=== PATIENT | female | born 1960 | race Caucasian/White ===

== ENCOUNTER 2017-09-11 12:33 | Emergency (ER) | payer MEDICARE ==
[2017-09-11] MEDS ORDERED: HYDROmorphone INJ* 2 MG/ML CARPUJECT SYRINGE IV SLOW PU ONE ×2 (14:47→17:32)
[2017-09-11] MEDS ORDERED: Carisoprodol TAB* 350 MG PO ONE (15:53)
--- NOTE | 2017-09-11 16:06 | RAD ---
INDICATION: Back pain. Multiple prior surgeries COMPARISON: Lumbar spine March 21, 2009 TECHNIQUE: Noncontrast axial source images was performed from the thoracolumbar junction to the sacrum. Coronal and and sagittal reformatted images were generated. FINDINGS: Vertebrae: There is no fracture or acute focal bony lesion. There is posterior lumbar fusion at L2-L5 with decompression at L3-L4 and L4-L5. There is a fusion cage device at L2-L3. There is no evidence of hardware failure. Alignment: The lumbar vertebrae are normally aligned. Central Canal: There are no significant CT abnormalities of the central canal or foramina. There are some limitations due to beam hardening artifact from the postsurgical change MR imaging is a more sensitive method to evaluate the canal and foramina. Intervertebral disc spaces: The remaining disc spaces are maintained. Soft tissues: The paravertebral soft tissues are normal. Other: None IMPRESSION: MULTILEVEL LUMBAR FUSION WITH DECOMPRESSIVE SURGERY. NO EVIDENCE OF HARDWARE FAILURE OR OSTEOLYSIS. NO SIGNIFICANT IDENTIFIABLE CANAL OR FORAMINAL COMPROMISE SIGNIFICANCE
--- NOTE | 2017-09-11 16:14 | RAD ---
INDICATION: Popping sensation RIGHT anterior chest. COMPARISON: October 25, 2002 TECHNIQUE: Dual energy PA and routine lateral views of the chest were obtained. REPORT: Mild elevation of the RIGHT hemidiaphragm which accounting for difference in degree of inspiration compared with the prior exam is without significant interval change. Minimal prominence of interstitial markings. No alveolar consolidation, focal pulmonary lesion, pleural effusion, pneumothorax. The heart, pulmonary vasculature, and mediastinal contours are unremarkable. Gallbladder fossa surgical clips. No rib fracture evident. IMPRESSION: Stigmata of potential obstructive lung disease. No acute cardiopulmonary process evident.
[2017-09-11] MEDS ORDERED: Diazepam TAB(*) 5 MG PO ONE (17:33)
[2017-09-11] MEDS ORDERED: fentaNYL PATCHs 100 MCG/HR TRANSDERM SCH (18:00)
[2017-09-11 19:13] VITALS: BP 130/65
--- NOTE | 2017-09-12 04:14 | ED ---
Bebeto Parnell Jason, scribed for Christine Sands MD on 09/11/17 at 1441 . Back Pain - HPI Summary HPI Summary: This patient is a 56 year old F presenting to [facility] accompanied by her son with a chief complaint of back pain for 4 days. The patient states I keep feeling a popping feeling under my right breast today and I have really bad back pain. She reports that her back pain began 4 days ago and she had MRI for pituitary gland concerns 3 days ago. The patient includes that she has had multiple surgeries in [place]. Her Last surgery was in 2009 and she takes Gabapentin 1800 mg a day. The patient rates the pain 10/10 in severity. Symptoms aggravated by movement. Symptoms alleviated by nothing. The patient's PCP is Dr. Zhong.(new PCP for pt). Pt states she is under a lot of stress because her is admitted in [facility] with stage IV colon CA. - History of Current Complaint Chief Complaint: EDBackInjuryPain Stated Complaint: BACK PAIN Time Seen by Provider: 09/11/17 14:28 Hx Obtained From: Patient Onset/Duration: Gradual Onset, Lasting Days - Since 4 days ago, Still Present Onset/Duration: Started Days Ago, Atraumatic, Still Present Timing: Constant Back Pain Location: Is Discrete @ - lumbar Severity Initially: Moderate Severity Currently: Severe Pain Intensity: 10 Pain Scale Used: 0-10 Numeric Character: Sharp Aggravating Symptom(s): Movement Alleviating Symptom(s): Nothing Associated Signs And Symptoms: Positive: Negative Related History: Previous Back Injury - Allergies/Home Medications Allergies/Adverse Reactions: Allergies Allergy/AdvReac Type Severity Reaction Status Date / Time bee venom protein (honey bee) Allergy Anaphylatic Verified 09/11/17 12:54 Shock Home Medications: Home Medications Diazepam TAB(*) [Valium TAB(*)] 5 mg PO TID PRN 09/11/17 [History Confirmed ] Gabapentin CAP(*) [Neurontin 300 CAP(*)] 600 mg PO TID 09/11/17 [History Confirmed 09/11/17] Hydrochlorothiazide TAB* [Hydrodiuril TAB*] 25 mg PO DAILY 09/11/17 [History Confirmed 09/11/17] Hydrocodone/Acetamin 10/325(NF [[place] 10/325 (NF)] 1 tab PO Q4H PRN 09/11/17 [ History Confirmed 09/11/17] Metformin ER (NF) 500 mg PO DAILY 09/11/17 [History Confirmed 09/11/17] Metoprolol Succinate XL TAB* [Toprol XL TAB*] 100 mg PO DAILY 09/11/17 [History Confirmed 09/11/17] Rosuvastatin (NF) [Crestor (NF)] 10 mg PO BEDTIME 09/11/17 [History Confirmed ] Valsartan TAB* [Diovan TAB*] 320 mg PO DAILY 09/11/17 [History Confirmed ] diPHENhydraMINE PO* [Benadryl PO 25 MG TAB*] 25 - 50 mg PO BEDTIME PRN 09/11/17 [History Confirmed 09/11/17] PMH/Surg Hx/FS Hx/Imm Hx Previously Healthy: No Endocrine/Hematology History: Reports: Hx Diabetes, Other Endocrine/ Hematological Disorders - pituitary adenoma Cardiovascular History: Reports: Hx Hypercholesterolemia, Hx Hypertension Musculoskeletal History: Reports: Hx Back Problems - Degenerative Disk Disease and multiple surgeries.(pt has pictures of prior) EENT History: Denies: Hx Deafness - Surgical History Surgery Procedure, Year, and Place: multiple back surgeries in [place], last in 2009. Infectious Disease History: No Infectious Disease History: Denies: Traveled Outside the US in Last 30 Days - Family History Known Family History: Positive: Cardiac Disease, Other - Cancer - Social History Occupation: Disabled Lives: With Family Alcohol Use: None Substance Use Type: Reports: None Smoking Status (MU): Former Smoker Review of Systems Positive: Other - "popping feeling under the breast" Cardiovascular: Negative Respiratory: Negative Gastrointestinal: Negative Positive: Arthralgia, Other - low back pain Skin: Negative Neurological: Negative Psychological: Normal All Other Systems Reviewed And Are Negative: Yes Physical Exam - Summary Physical Exam Summary: General: Patient is hunched over stretcher in tears. Complaining of severe pain on arrival to the room. Appearance: Ill-appearing, severe pain distress, Well-nourished. Skin: Warm, color reflects adequate perfusion Head: Normal Head/Face inspection Eyes: Conjunctiva clear ENT: Normal inspection Neck: Supple, no nodes, no JVD. Respiratory: Lungs clear, Normal breath sounds, no respiratory distress Cardio: RRR, No murmur, pulses normal, brisk capillary refill Abdomen: soft, nontender, no masses, no guarding, no rebound Bowel sounds: present Musculoskeletal: Strength Intact/ ROM intact. No calf tenderness. No edema. Spinal and paraspinal tenderness of the lumbar spine. Psychological: Normal Neuro Exam: A&O x3 CN II-XII intact Motor function 5/5 Sensation intact Knee reflexes and ankle reflexes 2+ bilaterally. Able to walk on heels and tip toes. Triage Information Reviewed: Yes Vital Signs On Initial Exam: Initial Vitals Temp Pulse Resp BP Pulse Ox 97.3 F 77 24 170/97 100 09/11/17 12:54 09/11/17 12:54 09/11/17 12:54 09/11/17 12:54 09/11/17 12:54 Vital Signs Reviewed: Yes Diagnostics - Vital Signs Vital Signs Temp Pulse Resp BP Pulse Ox 09/11/17 12:54 97.3 F 77 24 170/97 100 - Laboratory Lab Statement: Any lab studies that have been ordered have been reviewed, and results considered in the medical decision making process. - Radiology CXR Radiology Interpretation Completed By: Radiologist - CXR reveals, per radiologist, Stigmata of potential obstructive lung disease. No acute cardiopulmonary process evident. ED physician has reviewed this radiology report. - CT Lumbar Spine CT Interpretation Completed By: Radiologist - Lumbar Spine CT reveals, per radiologist, MULTILEVEL LUMBAR FUSION WITH DECOMPRESSIVE SURGERY. NO EVIDENCE OF HARDWARE FAILURE OR OSTEOLYSIS. NO SIGNIFICANT IDENTIFIABLE CANAL OR FORAMINAL COMPROMISE SIGNIFICANCE. ED physician has reviewed this radiology report. Re-Evaluation - Re-Evaluation First Eval Re-Evaluation Time: 17:28 Change: Unchanged Comment: Patient states she experiences lower back pain when she takes a deep breath. Back Pain Course/Dx - Course Course Of Treatment: In the ED course the patient was Dilaudid 2mg IV first. At 15:50 Dr. Sands consulted the Patients nurse, who reported that the patients pain is down to a 7/10. Pt given Soma with minimal relief. Pt then given additional dilaudid 2mg IV, then valium 5mg po and started on Fentanyl 100mcg patch with relief of most of her pain. CT LS spine shows no hardward failure or fx, and shows no acute cause for surgical intervention or further emergency treatment. Pt is relieved and states she wants to go upstairs in [facility] and sleep with her who is on palliative care. - Diagnoses Differential Diagnosis/HQI/PQRI: Positive: Arthritis, Compressive Cord Syndrome , Herniated Disc, Strain, Sprain Provider Diagnoses: Acute back pain, Chronic back pain, Degenerative disc disease, multiple back surgeries Discharge - Discharge Plan Condition: Stable Disposition: HOME Prescriptions: fentaNYL PATCHs 100 MCG/HR* [Duragesic Patch 100 Mcg/Hr *] 100 mcg TRANSDERM Q72H #5 patch MDD 07/01 Patient Education Materials: Acute Low Back Pain (ED), Chronic Back Pain (ED) Referrals: David Zhong MD [Medical Doctor] - 2 Days Additional Instructions: We have given you a copy of your CT lumbar spine and chest xray. We did not find a cause for the pain that needs any emergency treatment. We gave you two doses of dilaudid 2mg IV, one 350mg oral dose of Soma, a muscle relaxant, and one dose of valium 5mg orally, and we started you on a Fentanyl patch 100mcgs/ hr that should stay in place for 3 days and then replace it. Follow up with your doctor RADHAMES. RETURN TO THE EMERGENCY DEPARTMENT FOR CHANGING OR WORSENING SYMPTOMS. The documentation as recorded by the Bebeto blackburn Jason accurately reflects the service I personally performed and the decisions made by , Christine Sands MD.
== END 2017-09-11 18:15 | disposition home or self-care (01) ==
LOC: ED 12:33
DX: M54.9 Dorsalgia, unspecified (principal); M51.34 Other intervertebral disc degeneration, thoracic region; Z87.891 Personal history of nicotine dependence
CPT/HCPCS: 71046; 72131; 99283; A9270-GY; J1170

== ENCOUNTER 2017-12-21 13:53 | Emergency (ER) | payer MEDICARE ==
--- NOTE | 2017-12-21 15:31 | RAD ---
INDICATION: Imbalance after " struck head on top of car while getting into car " and "patient also fell in closet last night struck head against TV". Patient denies loss of consciousness. COMPARISON: CT brain September 05, 2003 TECHNIQUE: Contiguous axial sections of the brain were obtained from the skull base to the vertex without contrast. FINDINGS: The ventricles, cisterns and sulci are within normal limits. The castillo-white matter differentiation is adequately maintained and there is no sulcal effacement. No significant focal abnormality or mass effect is present. There is no evidence for intracranial hemorrhage. No significant focal osseous abnormality is present. The visualized portion of the paranasal sinuses appear clear. The mastoid air cells are well aerated bilaterally. IMPRESSION: Normal CT of the brain.
[2017-12-21 16:32] VITALS: BP 115/58
--- NOTE | 2017-12-21 19:40 | ED ---
Mat Parnell Jade, scribed for Jessica Shaw MD on 12/21/17 at 1450 . Head Injury - HPI Summary HPI Summary: Pt is a 57 y/o female who presents to the ED S/P head injury. She states she hit the left side of her head yesterday while getting into a car. Last night, she hit her head on the right side after falling in her closet, and injured her left arm as well. This morning she woke up feeling dizzy and unable to walk straight, nauseated, and had double vision. Pt complains of head pain towards the back (occipital), rated 5/10 in severity. She denies any vomiting or LOC. Pt initially thought her symptoms were due to sleep deprivation, but sleeping did not resolve anything. She has a Fentanyl patch on for her chronic back pain. PMHx HTN, broken back, neuropathy, low ATCH levels, and low cortisol levels. She did not take any medications for her symptoms. Pt was recently started on Prozac, and is worried about her recently low BP. - History Of Current Complaint Chief Complaint: EDHeadInjury Stated Complaint: POSSIBLE CONCUSSION Time Seen by Provider: 12/21/17 14:11 Hx Obtained From: Patient Mechanism Of Injury: Blunt Trauma, Fall From A Standing Position Onset/Duration: Started Days Ago - 1, Still Present Severity Currently: Moderate Pain Intensity: 5 Pain Scale Used: 0-10 Numeric Location of Head Injury: Frontal Associated Signs And Symptoms: Nausea, Headache, Visual Changes - double vision - Allergies/Home Medications Allergies/Adverse Reactions: Allergies Allergy/AdvReac Type Severity Reaction Status Date / Time bee venom protein (honey bee) Allergy Anaphylatic Verified 12/21/17 14:08 Shock Home Medications: Home Medications FLUoxetine CAP* [PROzac CAP*] 20 mg PO DAILY 12/21/17 [History Confirmed ] PMH/Surg Hx/FS Hx/Imm Hx Endocrine/Hematology History: Reports: Hx Diabetes, Other Endocrine/ Hematological Disorders - pituitary adenoma Cardiovascular History: Reports: Hx Hypercholesterolemia, Hx Hypertension Musculoskeletal History: Reports: Hx Back Problems - Degenerative Disk Disease and multiple surgeries.(pt has pictures of prior) Sensory History: Denies: Hx Deafness Psychiatric History: Reports: Hx Depression - Situational - Surgical History Surgery Procedure, Year, and Place: multiple back surgeries in [place], last in 2009. Infectious Disease History: No Infectious Disease History: Denies: Traveled Outside the US in Last 30 Days - Family History Known Family History: Positive: Cardiac Disease, Other - Cancer - Social History Alcohol Use: Rare Substance Use Type: Reports: None Smoking Status (MU): Former Smoker Review of Systems Positive: Diplopia Positive: Nausea. Negative: Vomiting Neurological: Other - Dizziness, unable to walk straight Positive: Headache - Occipital Positive: Depressed - due to 's CA All Other Systems Reviewed And Are Negative: Yes Physical Exam - Summary Physical Exam Summary: GENERAL: Patient is a well-developed and nourished F who is lying comfortable in the stretcher. Patient is not in any acute respiratory distress. HEAD AND FACE: Normocephalic. EYES: PERRLA, EOMI x 2. EARS: Hearing grossly intact. MOUTH: Oropharynx within normal limits. NECK: Supple, trachea is midline, no adenopathy, no JVD, no carotid bruit. CHEST: Symmetric, no tenderness at palpation LUNGS: Clear to auscultation bilaterally. No wheezing or crackles. CVS: Regular rate and rhythm, S1 and S2 present, no murmurs or gallops appreciated. ABDOMEN: Soft, non-tender. Bowel sounds are normal. No abdominal abnormal pulsations. EXTREMITIES: Full ROM in all major joints, no edema, no cyanosis or clubbing. NEURO: Alert and oriented x 3. No acute neurological deficits. Speech is normal and follows commands. Cranial nerves II-XII grossly intact, no dysmetria finger to nose, nml heel to [place] SKIN: Dry and warm. Triage Information Reviewed: Yes Vital Signs On Initial Exam: Initial Vitals Temp Pulse Resp BP Pulse Ox 97.8 F 71 16 98/58 96 12/21/17 14:03 12/21/17 14:03 12/21/17 14:03 12/21/17 14:03 12/21/17 14:03 Vital Signs Reviewed: Yes Diagnostics - Vital Signs Vital Signs Temp Pulse Resp BP Pulse Ox 12/21/17 14:28 73 8 108/64 96 12/21/17 14:27 75 94 12/21/17 14:03 97.8 F 71 16 98/58 96 - Laboratory Lab Statement: Any lab studies that have been ordered have been reviewed, and results considered in the medical decision making process. - CT Brain CT CT Interpretation: No Acute Changes - 14:52: Normal CT of the brain. ED physician reviewed radiology report. CT Interpretation Completed By: Radiologist Head Injury Course/Dx Course Of Treatment: Pt is a 57 y/o female who presents to the ED S/P head injury. She states she hit the left side of her head yesterday while getting into a car. Last night, she hit her head on the right side after falling in her closet, and injured her left arm as well. This morning she woke up feeling dizzy and unable to walk straight, nauseated, and had double vision. Pt complains of head pain towards the back (occipital), rated 5/10 in severity. She denies any vomiting or LOC. Pt initially thought her symptoms were due to sleep deprivation, but sleeping did not resolve anything. She has a Fentanyl patch on for her chronic back pain. PMHx HTN, broken back, neuropathy, low ATCH levels, and low cortisol levels. She did not take any medications for her symptoms. Pt was recently started on Prozac, and is worried about her recently low BP. A physical exam was normal. A brain CT was normal. Final dx is head injury. Pt will be discharged and was given strict precautions, especially for concussion. Pt is agreeable with this plan. - Diagnoses Provider Diagnoses: Head injury Discharge - Sign-Out/Discharge Documenting (check all that apply): Discharge/Admit/Transfer - Discharge - Discharge Plan Condition: Stable Disposition: HOME Patient Education Materials: Concussion (ED), Head Injury (ED) Referrals: Dickson Del Rio MD [Primary Care Provider] - 3 Days Additional Instructions: RETURN TO THE ED WITH ANY NEW OR WORSENING SYMPTOMS. The documentation as recorded by the Mat blackburn Jade accurately reflects the service I personally performed and the decisions made by , Jessica Shaw MD.
== END 2017-12-21 16:31 | disposition home or self-care (01) ==
LOC: ED 13:53
DX: S09.90XA Unspecified injury of head, initial encounter (principal); W22.8XXA Striking against or struck by other objects, initial encounter; Y92.9 Unspecified place or not applicable; I10 Essential (primary) hypertension; G62.9 Polyneuropathy, unspecified; Z87.891 Personal history of nicotine dependence
CPT/HCPCS: 70450; 99282

== ENCOUNTER 2018-01-27 14:38 | Emergency (ER) | payer MEDICARE ==
[2018-01-27] MEDS ORDERED: NS 0.9% 1000 ML* 1,000 ML IV ONE (15:13)
[2018-01-27] MEDS ORDERED: diPHENhydraMINE IV* 50 MG in NS 0.9% 50 ML* 50 ML IVPB ONE (15:13)
[2018-01-27] MEDS ORDERED: Metoclopramide IV* 5 MG/ML 2 ML VIAL IV ONE (15:13)
[2018-01-27] MEDS ORDERED: Ketorolac INJ* 30 MG/ML 1 ML VIAL IV PUSH ONE (15:13)
--- NOTE | 2018-01-27 15:20 | ED ---
Headache - HPI Summary HPI Summary: This is Located Within [facility] documenting for attending Jessica Shaw MD. Pt is a 57 y/o F c/o SANTIAGO onset this AM. Pain is located diffusely across her head worse in the frontal region. She says that it feels like brain is coming out of her head. Her was diagnosed with colon cancer and given a few months to live and is currently on hospice. He has received all possible treatments and is currently dying while she is here in ED. Assoc Sx: SANTIAGO, bp 200/ 110, stress, N. Denies: SI, V/D. She has not eaten anything today and notes that she "would not do that to her kids", when asked if she is having SI. Pt took 2 doses of diovan, separately, FINISHED [employer]IG[employer]ER in attempts to lower her BP. Has not been keeping up with meds due to everything going on in her life. Her BP jumps up and down so it is hard to keep on top of meds. She measured her BP at 90/50 the other day. She otherwise denies any fevers, chills, neck stiffness, photophobia - History Of Current Complaint Chief Complaint: EDHeadache Stated Complaint: HEADACHE/HIGH BP Time Seen by Provider: 01/27/18 15:04 Hx Obtained From: Patient Onset/Duration: Sudden Onset, Started hours ago - this AM, Still Present Initially Headache Was: "Worst Headache Ever" - "feels like brain is coming out of head" Currently Pain Is: Current Pain Scale(0-10)= Timing: Constant Location of Headache: Diffuse Allevating Factors: Medication - diovan Associated Signs And Symptoms: Nausea, Other (Noted In Comments) - NEG: vomiting POS: Diarrhea - Allergies/Home Medications Allergies/Adverse Reactions: Allergies Allergy/AdvReac Type Severity Reaction Status Date / Time bee venom protein (honey bee) Allergy Anaphylatic Verified 12/21/17 14:08 Shock PMH/Surg Hx/FS Hx/Imm Hx Endocrine/Hematology History: Reports: Hx Diabetes, Other Endocrine/ Hematological Disorders - pituitary adenoma Cardiovascular History: Reports: Hx Hypercholesterolemia, Hx Hypertension Musculoskeletal History: Reports: Hx Back Problems - Degenerative Disk Disease and multiple surgeries.(pt has pictures of prior) Sensory History: Denies: Hx Deafness Psychiatric History: Reports: Hx Depression - Situational - Surgical History Surgery Procedure, Year, and Place: multiple back surgeries in [place], last in 2009. Infectious Disease History: No Infectious Disease History: Denies: Traveled Outside the US in Last 30 Days - Family History Known Family History: Positive: Cardiac Disease, Other - Cancer - Social History Occupation: Disabled Lives: With Family Alcohol Use: Rare Substance Use Type: Reports: None Smoking Status (MU): Former Smoker Review of Systems Positive: Other - unusual HTN Positive: Nausea. Negative: Vomiting, Diarrhea Positive: Headache Positive: Other - stressed All Other Systems Reviewed And Are Negative: Yes Physical Exam - Summary Physical Exam Summary: GENERAL: Patient is a well developed and nourished F who is lying comfortable in the stretcher. Patient is not in any acute respiratory distress. Very emotional, crying, not suicidal. HEAD AND FACE: Normocephalic EYES: PERRLA, EOMI x 2. EARS: Hearing grossly intact. MOUTH: Oropharynx within normal limits. NECK: Supple, trachea is midline, no adenopathy, no JVD, no carotid bruit. CHEST: Symmetric, no tenderness at palpation LUNGS: Clear to auscultation bilaterally. No wheezing or crackles. CVS: Regular rate and rhythm, S1 and S2 present, no murmurs or gallops appreciated. ABDOMEN: Soft, non-tender. Bowel sounds are normal. No abdominal abnormal pulsations. EXTREMITIES: Full ROM in all major joints, no edema, no cyanosis or clubbing. NEURO: Alert and oriented x 3. No acute neurological deficits. Speech is normal and follows commands. Cranial nerves II through XII grossly intact, no dysmetria on [id number] testing SKIN: Dry and warm Psych: Sad affect, no SI or H, no other direct visualization, linear thought process and content Triage Information Reviewed: Yes Vital Signs On Initial Exam: Initial Vitals Temp Pulse Resp BP Pulse Ox 98.1 F 60 20 153/101 99 01/27/18 14:40 01/27/18 14:40 01/27/18 14:40 01/27/18 14:40 01/27/18 14:40 Vital Signs Reviewed: Yes Diagnostics - Vital Signs Vital Signs Temp Pulse Resp BP Pulse Ox 01/27/18 14:40 98.1 F 60 20 153/101 99 - Laboratory Lab Statement: Any lab studies that have been ordered have been reviewed, and results considered in the medical decision making process. Re-Evaluation - Re-Evaluation First Eval Re-Evaluation Time: 16:45 Change: Improved Comment: She is feeling much better. She notes the pain of her SANTIAGO was reduced "from a 40/10 to a 7/10". She is now able to eat and is eating cheese/crackers. Second Eval Re-Evaluation Time: 19:00 Change: Worse Comment: Pt is still crying and breaks down every time the provider mentions going home. Provider ordered diphenhydramine and dexamethosone for the patient. Headache Course/Dx - Course Course Of Treatment: Pt is a 57 y/o F c/o SANTIAGO onset this AM. Patient reports that she is under a lot of stress at the moment because her of 39 years is on hospice and she is having a hard time dealing with it. Patient additionally reports that she is at odds with her children which is making the situation worse. Patient very tearful but denies any SI or HI. Patient was given IV fluids, Toradol, Reglan, Benadryl and upon reevaluation, patient reports that her headache went from a "40" to a 7/10. She was additionally given Fioricet and Decadron and reports further improvement. Patient is otherwise hemodynamically stable and will be discharged home if strict return precautions and otherwise follow-up with her doctor. I suspect patient's headache is most likely stress-induced and she says she'll follow-up with her reptile keeper. - Diagnoses Provider Diagnoses: Headache Discharge - Sign-Out/Discharge Documenting (check all that apply): Patient Departure - Discharge Plan Condition: Stable Disposition: HOME Referrals: Dickson Del Rio MD [Primary Care Provider] - 3 Days Additional Instructions: Follow up with your primary care physician in 1-3 days. RETURN TO THE EMERGENCY DEPARTMENT FOR CHANGING OR WORSENING SYMPTOMS. - Billing Disposition and Condition Condition: STABLE Disposition: Home
[2018-01-27] MEDS ORDERED: Butalb/Acetamin/Caff TAB* 1 TAB PO ONE (18:54)
[2018-01-27] MEDS ORDERED: Dexamethasone IV* 4 MG/ML 1 ML (4 MG) IV SLOW PU ONE (18:54)
[2018-01-27 20:49] VITALS: BP 151/62
== END 2018-01-27 20:47 | disposition home or self-care (01) ==
LOC: ED 14:38
DX: R51 Headache (principal); Z87.891 Personal history of nicotine dependence
CPT/HCPCS: 96374; 96375; 99282; A9270-GY; J1100; J1200; J1885; J2765

== ENCOUNTER 2018-02-16 13:33 | Emergency (ER) | payer MEDICARE ==
--- NOTE | 2018-02-16 13:53 | ED ---
Headache - HPI Summary HPI Summary: 57 y/o female presents to the ED c/o severe SANTIAGO for around 1 month. Rated 7/10 in severity, at the top of the head, described as a pressure. Associated sx: dizziness, vomiting, back pain s/p falls. Pt has also had frequent falls (20 times in the last month). Pt states falls are getting more frequent. fell two days ago last and hit her head. Pt states her PCP believes sx are due to change in medication. 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 Sx 4 back surgeries. Associated sx: bilateral LE edema. Sx not aggravated or alleviated by anything. Pt's 01/29/18. Pt is being treated for depression. - History Of Current Complaint Chief Complaint: EDHeadache Stated Complaint: HEADACHE/FALLS Hx Obtained From: Patient Onset/Duration: Started weeks ago, Still Present Currently Pain Is: Severe Aggravating Factor: Nothing Allevating Factors: Nothing Associated Signs And Symptoms: Dizziness, Vomiting, Other (Noted In Comments) - falls, edema, back pain - Allergies/Home Medications Allergies/Adverse Reactions: Allergies Allergy/AdvReac Type Severity Reaction Status Date / Time bee venom protein (honey bee) Allergy Anaphylatic Verified 02/16/18 13:41 Shock Home Medications: Home Medications Diazepam TAB(*) [Valium TAB(*)] 10 mg PO BEDTIME 02/16/18 [History Confirmed ] Irbesartan 75 mg PO DAILY 02/16/18 [History Confirmed 02/16/18] PMH/Surg Hx/FS Hx/Imm Hx Previously Healthy: No Endocrine/Hematology History: Reports: Hx Diabetes, Other Endocrine/ Hematological Disorders - pituitary adenoma Cardiovascular History: Reports: Hx Hypercholesterolemia, Hx Hypertension Musculoskeletal History: Reports: Hx Back Problems - Degenerative Disk Disease and multiple surgeries.(pt has pictures of prior) Sensory History: Denies: Hx Deafness Psychiatric History: Reports: Hx Depression - Situational - Surgical History Surgery Procedure, Year, and Place: multiple back surgeries in [place], last in 2009. Infectious Disease History: No Infectious Disease History: Denies: Traveled Outside the [place] in Last 30 Days - Family History Known Family History: Positive: Cardiac Disease, Other - Cancer - Social History Alcohol Use: Rare Substance Use Type: Reports: None Smoking Status (MU): Former Smoker Review of Systems Constitutional: Negative Eyes: Negative ENT: Negative Cardiovascular: Negative Respiratory: Negative Positive: Vomiting Genitourinary: Negative Positive: Edema, Other - back pain s/p fall Skin: Negative Neurological: Other - falls, dizziness Positive: Headache Psychological: Normal All Other Systems Reviewed And Are Negative: No Physical Exam - Summary Physical Exam Summary: Alert, conversive, nontoxic appearing Skin: Warm, dry, no mottling, no rashes, no contusions HEENT: EOMI, PERRL, moist mucous membranes Neck: No masses on the neck, supple Respiratory: Clear to auscultation, breath sounds present, no rales, no rhonchi , no wheezes Cardiovascular: RRR, pulses are symmetrical in both lower and upper extremities Abdomen: Soft, non-tender Bowel Sounds: Present Musculoskeletal: No CVA tenderness, no obvious deformity, moving all extremities in a grossly normal manner Neurological: A&Ox3, CN II-XII Intact, moving all extremities symmetrically Psychiatric: Anxious. Triage Information Reviewed: Yes Vital Signs On Initial Exam: Initial Vitals Temp Pulse Resp BP Pulse Ox 97.6 F 72 19 159/82 94 02/16/18 13:39 02/16/18 13:39 02/16/18 13:39 02/16/18 13:39 02/16/18 13:39 Vital Signs Reviewed: Yes Diagnostics - Vital Signs Vital Signs Temp Pulse Resp BP Pulse Ox 02/16/18 13:39 97.6 F 72 19 159/82 94 - Laboratory Result Diagrams: 02/16/18 14:38 02/16/18 14:38 Lab Statement: Any lab studies that have been ordered have been reviewed, and results considered in the medical decision making process. - CT BRAIN CT CT Interpretation: No Acute Changes - No acute intracranial pathology CT Interpretation Completed By: Radiologist Re-Evaluation - Re-Evaluation 1 Re-Evaluation Time: 16:32 Comment: Discuss test results and findings. Re-exam normal. Headache Course/Dx - Course Assessment/Plan: SANTIAGO for 1 month with dizziness and frequent falls. Brain CT negative for acute intracranial pathology. Benadryl, Compazine, fluids given in ED course. 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 Before d/ c pt given Dilaudid. - Diagnoses Provider Diagnoses: Headache, Depression Discharge - Sign-Out/Discharge Documenting (check all that apply): Patient Departure - Discharge Plan Condition: Stable Disposition: HOME Patient Education Materials: Acute Headache (ED) Referrals: Dickson Del Rio MD [Primary Care Provider] - Additional Instructions: Please follow up with your primary care physician. return if worse or any new symptoms. Take all medications as previously instructed. - Billing Disposition and Condition Condition: STABLE Disposition: Home - Attestation Statements Document Initiated by Scribe: Yes Documenting Scribe: Wallace Chávez Provider For Whom Ayazibe is Documenting (Include Credential): Madiha Patel Scribe Attestation: Wallace Parnell, scribed for Madiha Patel on 02/18/18 at 1213. Scribe Documentation Reviewed: Yes Provider Attestation: The documentation as recorded by the Wallace blackburn accurately reflects the service I personally performed and the decisions made by Madiha richards
--- OUTSIDE RECORDS SUMMARY | 2018-02-16 14:30 | XMS REPORT ---
:1960 External Reference #:[id number] Author Organization [facility] Address [address] [place] [address] Phone [phone] Care Team Providers Name Role Phone David Zhong MD Care Team Information Patent Counsel Unavailable David Zhong MD Primary Care Physician Unavailable Payers Type Date Identification Numbers Payment Provider Subscriber Medicare Primary Effective: Policy Number: Medicare Karlos Dove 2008 [id number] PayID: [id number] [address] [place] [address] Problems Date Description Provider Status Onset: 02/03/2018 Diabetes mellitus Dickson Del Rio M.D. Active Onset: 02/03/2018 Essential hypertension Dickson Del Rio M.D. Active Onset: 02/03/2018 Pure hypercholesterolemia Dickson Del Rio M.D. Active Family History Date Family Member(s) Problem(s) Comments Father Diabetes Mellitus, II Father Hypertension Father Coronary Artery Disease (CAD) Mother Heart Disease Mother Breast Cancer Mother Uterine Cancer Mother Diabetes Mellitus, II Mother Hypertension Mother Hyperlipidemia Mother Coronary Artery Disease (CAD) Maternal Grandfather Diabetes Mellitus, II Maternal Grandmother Diabetes Mellitus, II Social History Type Date Description Comments Smoking Nonsmoker Allergies, Adverse Reactions, Alerts Date Description Reaction Status Severity Comments 01/23/2009 Bees active Medications Medication Date Status Form Strength Qnty SIG Indications Ordering Provider Irbesartan 02/03 Active Tablets 150mg 30tab 1 by Dickson Padilla /2018 s mouth Darlow, every day M.DRenea Diazepam 12/10 Active Tablets 10mg 90tab take 1 s tablet by ebnita Zhong MD three times daily as needed - maximum daily dose of 3 per day Fluoxetine HCL 12/10 Active Capsules 10mg 60cap one daily s for 6 scott Zhong, then two daily Metoprolol Active Tablets 100mg 90tab 1 by David Shelton Succinate ER / ER 24HR s mouth Farheen every day Gabapentin Active Tablets 600mg 180ta take 1 bs tablet by benita Zhong MD three times a day Biotin Active Tablets [id number] once Unknown / daily Turmeric Active Tablets 538mg once Unknown / daily Rosuvastatin Active Tablets 10mg 90tab 1 by David Shelton Calcium s mouth Farheen, every day Hydrochlorothiazid Active Tablets 25mg 90tab 1 by David Shelton e s mouth Farheen every day Fentanyl Active Patches 100mcg/HR 10uni apply 72HR ts every 3 Farheen, days for pain control Ativan 08/24 Hx Tablets 2mg 2tabs one 60 minutes Farheen, - before Leda MRI. October take second just before if needed. Diazepam 08/07 Hx Tablets 5mg 90tab one by s mouth Farheen, - three MD 12/10 times day as needed spasm. [place] 01/23 Hx Tablets 10-325mg 180ta 1-2 q4hr osito Farr - [facility] 08/07 Diazepam 01/23 Hx Tablets 10mg 90tab tid marybeth Farr - [facility] 08/07 Neurontin 01/23 Hx Capsules 300mg 90cap tid 722.73 marybeth Farr - [facility] 08/07 Lasix 01/23 Hx Tablets 20mg 30tab 1 po qd [facility] Vicodin 11/18 Hx Tablets 5-500mg 120ta 1 po qid David Osorio /2007 Talya Muller M.D. 01/23 Valium 12/10 Hx Tablets 5mg 120ta qid David Osorio /2006 Talya Anton M.D. 08/07 Oxycodone 12/10 Hx Capsules 5mg 20cap 1 qid Dickson A. /2006 s Talya Del Rio M.D. 12/15 disp twenty Prevacid 10/22 Hx 30mg 30uni 1 po qd David Osorio /2003 Talya Salguero M.D. 12/10 Ativan 09/08 Hx 0.5mg 15uni 1-2 po Iman ts tid prn Hilelizabeth - Afnp-C 12/10 Nortryptiline 09/04 Hx 25mg 180un 2 PO QHS David Osorio /2003 its Talya Meadows M.D. 12/10 Keflex 08/16 Hx 500mg 30uni 1 po tid Dickson Padilla /2003 Talya Leung M.D. 12/10 Nortriptyline 07/28 Hx 25mg 65uni 1 qhs David Osorio /2003 X1week Abdiel, - Lori Gamez 08/07 To 2 QHS Bactroban Cream 07/25 Hx 15gm apply to affected Yordan, - areas tid ALL AROUND PRESSER 08/16 x 3-5d /2003 Pen VK 05/27 Hx Tablets 500mg 40tab 1 qid x s 10 days Jonathan, - ALL AROUND PRESSER-C 08/16 Compazine 05/12 Hx 10mg 30uni 1 tab q Renea ts 4-6 hrs Talya Meadows M.D. 08/16 nausea/vo miting Vicodin 04/15 Hx 5/500 40uni 1-2 po q Lexie R ts 6 h prn Jonathan - ALL AROUND PRESSER-C 08/16 Tylenol #3 04/07 Hx 30uni 1-2 PO Q ts 4H prn Yordan - ALL AROUND PRESSER 04/15 Hydrochlorothiazid 03/20 Hx 25 60uni 1 bid 401.9 Lucy ts Yordan, - ALL AROUND PRESSER 08/07 Topamax 02/16 Hx 25mg 120un One QHS Lexie R its X1week, 1 Jonathan, - bid X1 ALL AROUND PRESSER-C 05/01 Week, bid Robitussin ac 12/05 Hx 4Oz 1-2 tsp Iman po q4h [place], - prn cough Afnp-C 12/10 Xanax 11/14 Hx .25mg 60uni 1/2 -1 po Lucy ts tid prn Yordan, - ALL AROUND PRESSER 12/10 Robitussin ac 08/24 Hx 4Oz 1-2 TSP Jo PO Q4H Davida, - prn Cough Afnp-C 09/03 Lopressor 08/17 Hx 50mg 60uni 1 po bid 401.9 Lucy ts Yordan, - ALL AROUND PRESSER 08/07 Altace 08/17 Hx 10mg 30uni 1 PO qd Dickson A. Talya Leung M.D. 12/10 Amitriptyline 08/17 Hx 60uni 4 PO hs Dickson A. /2002 Talya Leung M.D. 09/04 Demerol 08/17 Hx 50mg 120un 2 q4 hrs David Osorio /2002 its prn Breimamilton, - migraine M.Polo 12/10 Biaxin XL 08/17 Hx 500mg Dickson A. Talya Del Rio M.D. 05/01 One P.O. bid For Ten Days Esgic Plus 08/17 Hx 60uni 1 PO bid Dickson A. Talya Leung M.D. 05/01 Biaxin XL 08/17 Hx 500mg 14uni 2 PO qd Dickson A. Talya Leung M.D. 05/01 Ultracet 08/17 Hx 37.5/325 120un 1 PO qid Dickson A. its prn Pain Talya Del Rio M.D. 05/01 Metformin HCL ER 00/00 Hx Tablets 500mg 90tab 1 pill a David T. (Mod) /0000 ER 24HR s day for Farheen, - diabetes 02/03 Tizanidine HCL 00/00 Hx Capsules 4mg take one /0000 by mouth - up to 3 08/07 times day as needed for pain Hydrocodone-Acetam Hx Tablets 10-325mg 120ta 1 tab by David gonzalez /0000 bs mouth Farheen, - every 6 02/03 hours needed Valsartan Hx Tablets 320mg 90tab 1 by David Shelton /0000 s benita Zhong, - every day 02/03 Medications Administered in Office Medication Date Status Form Strength Qnty SIG Indications Ordering Provider Injection Administered Injection Dickson A. Subcutaneous Or 2003 Darlow, Intramuscular M.D. Injection 12/05/ Administered Injection Dickson A. Subcutaneous Or 2002 Darlow, Intramuscular M.D. Injection Administered Injection Dickson A. Subcutaneous Or 2002 Darlow, Intramuscular M.D. Immunizations CPT Code Status Date Vaccine Lot # [id number] Given 04/03/2003 DT Immunization [id number] Given 03/17/2003 DO Not Use Split Influenza Virus Vaccine [id number] Given 03/17/2003 DO Not Use Split Influenza Virus Vaccine Vital Signs Date Vital Result Comment 02/04/2018 BP Systolic 110 mmHg BP Diastolic 70 mmHg Heart Rate 78 /min Body Temperature 97.4 F Respiratory Rate 16 /min 02/03/2018 BP Systolic 110 mmHg las BP Diastolic 70 mmHg las BP Systolic Recheck 120 mmHg haresh BP Diastolic Recheck 80 mmHg haresh Heart Rate 80 /min Body Temperature 97.9 F Respiratory Rate 16 /min Height 62.5 inches 5'2.50" 12/10/2017 BP Systolic 130 mmHg BP Diastolic 80 mmHg Heart Rate 84 /min Body Temperature 98.0 F Respiratory Rate 16 /min Height 62.5 inches 5'2.50" Weight 228.00 lb BMI (Body Mass Index) 41.0 kg/m2 09/24/2017 BP Systolic 120 mmHg BP Diastolic 64 mmHg Heart Rate 72 /min Body Temperature 98.0 F Respiratory Rate 16 /min Height 62.5 inches 5'2.50" Weight 238.00 lb BMI (Body Mass Index) 42.8 kg/m2 08/07/2017 BP Systolic 122 mmHg BP Diastolic 70 mmHg Heart Rate 78 /min Body Temperature 97.6 F Respiratory Rate 16 /min Height 62.5 inches 5'2.50" Weight 226.50 lb BMI (Body Mass Index) 40.8 kg/m2 01/23/2009 BP Systolic 130 mmHg BP Diastolic 90 mmHg Heart Rate 84 /min Body Temperature 98.6 F Height 63 inches 5'3" 09/05/2003 BP Systolic 128 mmHg BP Diastolic 88 mmHg Heart Rate 74 /min Weight 120.00 lb 05/01/2003 BP Systolic 140 mmHg BP Diastolic 80 mmHg Heart Rate 72 /min Body Temperature 95.6 F 12/05/2002 BP Systolic 130 mmHg BP Diastolic 90 mmHg Heart Rate 88 /min Body Temperature 98.1 F Respiratory Rate 18 /min 08/17/2002 BP Systolic 120 mmHg BP Diastolic 80 mmHg Heart Rate 88 /min Body Temperature 98.0 F Results Test Date Test Result H/L Range Note Laboratory test finding 08/07/2017 Cortisol - Am 5.8 g/dL Low 6.2-19.4 1 Acth, Plasma 5.8 pg/mL Low 7.2-63.3 1, 2 Complete Blood Count 08/07/2017 WBC 8.1 x10^3/UL 3.6-9.6 RBC 4.17 x10^6/UL 3.90-5.70 HGB 12.9 g/dL 12.1-17.2 HCT 39 % 36-50 MCV 93.0 fL 82.2-97.4 MCH 30.9 pg 27.6-33.3 MCHC 33.3 g/dL 33.0-35.5 RDW 14.2 % High 11.6-13.7 PLT 258 x10^3/UL 150-400 MPV 8.4 fL 7.4-10.4 Gran # 5.0 x10^3/UL 1.5-7.2 Lymph# 2.7 x10^3/UL 0.7-4.9 [place]# 0.4 x10^3/UL 0.1-0.9 Gran % 60.4 % 42.2-75.2 Lymph % 34.4 % 20.5-51.1 [place]% 5.2 % 1.7-9.3 Comprehensive Metabolic Prof 08/07/2017 Sodium 139 mEq/L 134-149 Potassium 4.8 mEq/L 3.6-5.5 Chloride 101 mEq/L 94-112 Carbon Dioxide 31 mEq/L 21-32 Glucose 127 mg/dL High 70-105 3 BUN 21 mg/dL 6-26 Creatinine 0.9 mg/dL 0.6-1.4 BUN/Creat Ratio 23.3 CALC 8.0-36.0 Calcium 10.3 mg/dL High 8.6-10.2 4 Total Protein 7.0 g/dL 6.4-8.3 Albumin 4.8 g/dL 3.8-5.5 Globulin 2.2 g/dL 2.0-4.8 A/G Ratio 2.2 CALC 0.6-2.3 Alk. Phosphatase 71 U/L 30-110 Alt (SGPT) 41 U/L High 7-35 5 Ast (Sgot) 25 U/L 5-34 Total Bilirubin 0.5 mg/dL 0.2-1.3 GFR Non- >60 ml/min/1.73m^ >=60 GFR >60 ml/min/1.73m^ >=60 Laboratory test finding 08/07/2017 LDL, Direct 150 mg/dL High 0-130 Laboratory test finding 08/07/2017 Hemoglobin A1c ([facility]) 5.7 % 4.1-5.7 Liver Function (a) 10/23/2003 Total Protein 7.1 g/dL 6.3-8.1 Albumin ([facility]) 4.6 3.8-5.5 A/G Ratio (a/[facility]) 1.9 0.6-2.2 Globulin 2.4 2.0-4.8 Alkaline Phosphatase (F/C/CTX) 69 U/L 30-110 Alt (SGPT) 14 10-40 Ast (Sgot) (a/[facility]) 13 U/mL 5-34 Bilirubin, Total 0.6 mg/dL 0.2-1.3 Bilirubin, Direct 0.1 mg/dL 0-0.6 Bilirubin, Indirect 0.48 ml/dl 0.10-1.0 Laboratory test finding 10/23/2003 Amylase 25 U/L 25 - 115 LH +FSH-SL 07/28/2003 FSH 6.1 mIU/ml 6 LH 9.6 mIU/ml 7 Laboratory test finding 06/27/2003 Misc C&S NO GROWTH DAY 2 Final Ua - Micro ([facility]) 06/23/2003 Appearance CLEAR Color DK YELLOW Glucose NEG Bilirubin NEG Ketones NEG SP Grav >=1.030 Blood 2+ PH 5.0 Protein NEG Urobil 0.2 Nitrite NEG Leukocytes NEG Hyaline - /Lpf Granular - /Lpf WBC'S 3-5 RBC'S 20-50 Mucus - /Lpf Epith 3-5 Bacteria - Amorphous - /Lpf Crystals - /Lpf Laboratory test finding 05/03/2003 Comments C&S R BREAST WND CBC Electronic ([facility]) 02/15/2003 WBC 9.0 3.6-9.6 Lymphocytes 31.9 % 20.5 - 51.1 Monocytes 6.7 % 1.7-9.3 Granulocytes 61.4 % 42.2 - 75.2 Lymphocytes 2.9 10^3/uL 0.7 - 4.9 Monocytes 0.6 10^3/uL 0.1 - 0.9 Granulocytes 5.5 10^3/uL 1.5 - 7.2 RBC 4.27 3.90-5.70 Hemoglobin (a/CMC/CTX) 13.8 g/dL 12.1 - 17.2 Hematocrit (a/CMC/CTX) 40.2 % 36.1 - 50.3 Mean Corpuscular Vol 94.1 82.2-97.4 Mean Corpuscular Hemaglobin 32.2 27.6-33.3 Mean Corpuscular Hemo Concen 34.2 33.0-34.8 RDW 12.3 11.6-13.7 Platelets 266. 10^3/ul 150-400 Mean Platelet Volume 8.8 7.4-10.4 Comp Metabolic ([facility]) 02/15/2003 Glucose, Serum (a/CMC/CTX) 95 mg/dL 70- 118 BUN ([facility]) 13 mg/dL 7-26 Creatinine (a/CMC/CTX) 0.9 mg/dL 0.6-1.4 BUN/Creatinin Ratio 14.1 8.0-36 Sodium 141 134-149 Potassium 4.3 3.6-5.5 Chloride 102 mEq/L 94-112 Co2 28 21-32 Calcium (a/[facility]) 9.6 mg/dL 8.6-10.0 Total Protein 6.9 g/dL 6.3-8.1 Albumin ([facility]) 4.3 3.8-5.5 Globulin 2.6 2.0-4.8 A/G Ratio (a/[facility]) 1.6 0.6-2.2 Alkaline Phosphatase (F/C/CTX) 75 U/L 30-110 Alt (SGPT) 15 10-40 Ast (Sgot) (a/[facility]) 16 U/mL 5-34 Bilirubin, Total 0.6 mg/dL 0.2-1.3 Lipid Profile ([facility]) 02/15/2003 Cholesterol 225 mg/dL High 120-200 Triglyceride 107 mg/dL 30-200 HDL-Chol 48 30-85 LDL-Calculated ([facility]) 156 CALC High 0-129 VLDL 21 0-50 HDL Risk Factor ([facility]) 4.7 CALC 4.2-7.0 Laboratory test finding 02/15/2003 Bilirubin, Direct 0.0 mg/dL 0-0.6 Bilirubin, Indirect 0.55 ml/dl 0.10-1.0 Magnesium 1.8 1.2-2.1 Free T4/TSH ([facility]) 02/15/2003 TSH 1.10 uIU/ml 0.5-6.0 Free T4 1.36 ng/dL 0.75-1.54 Comp+Liver ([facility]) 10/28/2002 Glucose, Serum (a/[facility]/CTX) 113 mg/dL 70- 118 BUN ([facility]) 15 mg/dL 7-26 Creatinine (a/[facility]/CTX) 0.8 mg/dL 0.6-1.4 BUN/Creatinin Ratio 20.4 8.0-36 Sodium 139 134-149 Potassium 4.3 3.6-5.5 Chloride 93, RECHECKED mEq/L Low 94-112 Co2 26 21-32 Calcium (a/[facility]) 9.1 mg/dL 8.6-10.0 Total Protein 7.4 g/dL 6.3-8.1 Albumin ([facility]) 4.9 3.8-5.5 Globulin 2.5 2.0-4.8 A/G Ratio (a/[facility]) 2.0 0.6-2.2 Alkaline Phosphatase 72 U/L 30-110 Alt (SGPT) 14 10-40 Ast (Sgot) ([facility]) 13 U/mL 5-34 Bilirubin, Total 0.6 mg/dL 0.2-1.3 Bilirubin, Direct 0.1 mg/dL 0-0.6 Bilirubin, Indirect 0.53 ml/dl 0.10-1.0 Laboratory test finding 10/28/2002 Amylase 31 U/L 25 - 115 CBC Electronic ([facility]) 10/28/2002 WBC 9.0 3.6-9.6 Lymphocytes 25.9 % 20.5 - 51.1 Monocytes 4.6 % 1.7-9.3 Granulocytes 69.5 % 42.2 - 75.2 Lymphocytes 2.3 10^3/uL 0.7 - 4.9 Monocytes 0.4 10^3/uL 0.1 - 0.9 Granulocytes 6.3 10^3/uL 1.5 - 7.2 RBC 4.59 3.90-5.70 Hemoglobin (a/CMC/CTX) 13.9 g/dL 12.1 - 17.2 Hematocrit (a/CMC/CTX) 42.6 % 36.1 - 50.3 Mean Corpuscular Vol 92.8 82.2-97.4 Mean Corpuscular Hemaglobin 30.3 27.6-33.3 Mean Corpuscular Hemo Concen 32.7 Low 33.0-34.8 RDW 12.8 11.6-13.7 Platelets 292 10^3/ul 150-400 Mean Platelet Volume 8.3 7.4-10.4 Laboratory test finding 10/25/2002 Lipase 85 U/L 23.0 - 300.0 Ua - Micro ([facility]) 10/11/2002 Appearance HAZY LT YELLOW Glucose NEGATIVE Bilirubin NEGATIVE Ketones NEGATIVE SP Grav 1.010 Blood NEGATIVE PH 5.0 Protein NEGATIVE Urobil 0.2 Nitrite NEGATIVE Leukocytes 1+ Hyaline - /Lpf Granular - /Lpf WBC'S 4-6 RBC'S 1-3 Mucus - /Lpf Epith MOD Bacteria 1+ Amorphous - /Lpf Crystals - /Lpf Comments SEE DETAILS 8 1 1 serum pour off from red top tube 2 ACTH reference interval for samples collected between 7 and 10 AM. 3 RESULTS VERIFIED BY REPEAT ANALYSIS 4 RESULTS VERIFIED BY REPEAT ANALYSIS 5 RESULTS VERIFIED BY REPEAT ANALYSIS 6 Follicular Phase: 4.0-13.0 mIU/mL Ovulatory Peak: 5.0-22.0 mIU/mL Luteal Phase: 2.0-13.0 mIU/mL Post-Menopausal: 20.0-138.0mIU/mL MALE: 1.0-8.0 mIU/mL . 7 Follicular Phase: 1.0-18.0 mIU/ml Ovulatory Peak: 24.0-105.0mIU/ml Luteal Phase: 0.4-20.0 mIU/ml Post-Menopausal: 15.0-62.0 mIU/ml MALES: 2.0-12.0 mIU/ml . 8 FEW YEAST-LIKE ORGANISMS Procedures Date CPT Code Description Status Comment 02/03/2018 39463 Electrocardiogram Complete Completed 09/05/2003 91439 Injection Subcutaneous Or Completed COMPAZINE 10MG/2ML L Intramuscular GLUT IM CJ 12/05/2002 08552 Injection Subcutaneous Or Completed COMPAZINE 10MG IM L Intramuscular [id number] 12/05/2002 19276 Injection Subcutaneous Or Completed DEMERAL 100MG IM L Intramuscular [id number] Encounters Type Date Location Provider CPT E/M Dx Office Visit 02/03/2018 11:30a [facility] Dickson Del Rio M.D. 81415 I10 E24.9 Office Visit 12/10/2017 4:20p [place] [address] F43.23 Office Visit 09/24/2017 9:50a [place] [address] M51.06 G89.29 Office Visit 08/07/2017 9:00a [place] [address] E11.8 D35.00 I10 E78.00 G89.29 E78.1 Office Visit 01/23/2009 1:15p Main Office Lucy Farr [facility] [address]390 401.9 722.73 Plan of Care 02/04/2018 - Nuris Yan, NPR51 HeadacheNew Labs:CBC Electronic ([facility]) Comp Metabolic-ALL Lab [id number] Essential (primary) hypertensionComments:Hold the irbesartan if your systolic pressure is below 120mm. We will check some basic labs.F43.23 Adjustment disorder with mixed anxiety and depressed moodComments:You can stop the fluoxetine for now to see if your headache goes away. If not, we can try another agent or different class of drugs.G89.29 Other chronic painB37.2 Candidiasis of skin and nailComments:Continue nystatin topically
--- OUTSIDE RECORDS SUMMARY | 2018-02-16 14:30 | XMS REPORT ---
:1960 External Reference #:[id number] Author Organization [facility] Address [address] [place] [address] Phone [phone] Care Team Providers Name Role Phone David Zhong MD Care Team Information Community Relations Liaison Unavailable David Zhong MD Primary Care Physician Unavailable Payers Type Date Identification Numbers Payment Provider Subscriber Medicare Primary Effective: Policy Number: Medicare Karlos Dove 2008 [id number] PayID: [id number] [address] [place] [address] Problems Date Description Provider Status Onset: 02/03/2018 [...] Strength Qnty SIG Indications Ordering Provider Irbesartan 02/08 Active Tablets 75mg 1 by David Shelton /Kristina mouth laci Zhong MD Diazepam 12/10 Active Tablets 10mg 90tab take 1 s tablet by benita Zhong MD three times daily as needed - maximum daily dose of 3 per day Fluoxetine HCL 12/10 Active Capsules 10mg 60cap one daily s for 6 scott Zhong, then two daily Metoprolol Active Tablets 100mg 90tab 1 by David Shelton Succinate ER / ER 24HR s mouth Farheen, every day Gabapentin Active Tablets 600mg 180ta take 1 bs tablet by benita Zhong MD three times a day Biotin Active Tablets 16291uid once daily Turmeric Active Tablets 538mg once daily Rosuvastatin Active Tablets 10mg 90tab 1 by David Shelton Calcium s mouth Farheen, every day Hydrochlorothiazid Active Tablets 25mg 90tab 1 by David Cat e s mouth Farheen every day Fentanyl Active Patches 100mcg/HR 10uni apply 72HR ts every 3 scott Zhong for pain control Irbesartan 02/03 Hx Tablets 150mg 30tab 1 by Dickson Sultana s mouth Quang, - every day M.D. 02/08 Ativan 08/24 Hx Tablets 2mg 2tabs one 60 minutes Farheen, - before [facility] MRI. October take second just before if needed. Diazepam 08/07 Hx Tablets 5mg 90tab one by s mouth Farheen, - three MD 12/10 times day as needed spasm. 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 01/23 Valium 12/10 Hx Tablets 5mg 120ta qid David Osorio /2006 Talya Anton M.D. 08/07 Oxycodone 12/10 Hx Capsules 5mg 20cap 1 qid Dickson Padilla /2006 s Talya Del Rio M.D. 12/15 disp twenty Prevacid 10/22 Hx 30mg 30uni 1 po qd David Osorio /2003 Talya Salguero M.D. 12/10 Ativan 09/08 Hx 0.5mg 15uni 1-2 po Iman ts tid prn Aditi, - Afnp-C 12/10 Nortryptiline 09/04 Hx 25mg 180un 2 PO QHS David Osorio /2003 its Talya Meadows M.D. 12/10 Keflex 08/16 Hx 500mg 30uni 1 po tid Dickson Padilla Talya Leung M.D. 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 Talya Leung M.D. 12/10 Amitriptyline 08/17 Hx 60uni 4 PO hs Dickson A. Talya Leung M.D. 09/04 Demerol 08/17 Hx 50mg 120un 2 q4 hrs David J. its prn Breiman, - migraine M.D. 12/10 Biaxin XL 08/17 Hx 500mg Dickson A. Talya Del Rio M.D. 05/01 One P.O. bid For Ten Days Esgic Plus 08/17 Hx 60uni 1 PO bid Dickson A. Talya Leung M.D. 05/01 Biaxin XL 08/17 Hx 500mg 14uni 2 PO qd Dickson A. Talya Leung M.D. 05/01 Ultracet 08/17 Hx 37.5/325 120un 1 PO qid Dickson A. its prn Pain aTlya Del Rio M.D. 05/01 Metformin HCL ER Hx Tablets 500mg 90tab 1 pill a David T. (Mod) /0000 ER 24HR s day for Farheen - diabetes 02/03 Tizanidine HCL Hx Capsules 4mg take one Unknown by mouth - up to 3 08/07 times day as needed for pain Hydrocodone-Acetam Hx Tablets 10-325mg 120ta 1 tab by David Shelton inophen /0000 bs mouth Farheen, - every 6 02/03 hours needed Valsartan Hx Tablets 320mg 90tab 1 by David Shelton /0000 s mouth Farheen, - every day 02/03 Medications Administered in Office Medication Date Status Form Strength Qnty SIG Indications Ordering Provider Injection 09/04/ Administered Injection Dickson A. Subcutaneous Or 2003 Darlow, Intramuscular M.D. Injection 12/05/ Administered Injection Dickson A. Subcutaneous Or 2002 Darlow, Intramuscular M.D. Injection 12/05/ Administered Injection Dickson A. Subcutaneous Or 2002 Darlow, Intramuscular M.D. Immunizations CPT Code Status Date Vaccine Lot # [id number] Given 04/03/2003 DT Immunization 96872 Given 03/17/2003 DO Not Use Split Influenza Virus Vaccine [id number] Given 03/17/2003 DO Not Use Split Influenza Virus Vaccine Vital Signs Date Vital Result Comment 02/08/2018 BP Systolic 120 mmHg BP Diastolic 72 mmHg Heart Rate 68 /min Body Temperature 97.9 F Respiratory Rate 18 /min Weight 217.00 lb 02/04/2018 BP Systolic 110 mmHg BP Diastolic [...] Test Date Test Result H/L Range Note Comprehensive Metabolic Prof 02/04/2018 Sodium 139 mEq/L 134-149 Potassium 3.7 mEq/L 3.6-5.5 Chloride 101 mEq/L 94-112 Carbon Dioxide 28 mEq/L 21-32 Glucose 125 mg/dL High 70-105 BUN 17 mg/dL 6-26 Creatinine 1.0 mg/dL 0.6-1.4 BUN/Creat Ratio 17.0 CALC 8.0-36.0 Calcium 9.2 mg/dL 8.6-10.2 Total Protein 6.0 g/dL Low 6.4-8.3 1 Albumin 4.1 g/dL 3.8-5.5 Globulin 1.9 g/dL Low 2.0-4.8 A/G Ratio 2.2 CALC 0.6-2.3 Alk. Phosphatase 70 U/L 30-110 Alt (SGPT) 58 U/L High 7-35 Ast (Sgot) 43 U/L High 5-34 Total Bilirubin 0.4 mg/dL 0.2-1.3 GFR Non- >60 ml/min/1.73m^ >=60 GFR >60 ml/min/1.73m^ >=60 CBC Electronic ([facility]) 02/04/2018 WBC 7.15 4.0-10.0 RBC 3.99 3.93-6.0 Hemoglobin ([facility]/CMC/CTX) 12.6 g/dL 12.0-17.0 Hematocrit ([facility]/CMC/CTX) 37.3 % 35.0-50.0 Mean Corpuscular Vol 93.5 fL 80-95 Mean Corpuscular Hemoglobin 31.6 pg 25.6-32.2 Mean Corpuscular Hemo Concen 33.8 g/dL 32.2-36.0 Platelets 165 10^3/ul 163-400 RDW-CV 13.4 11.6-14.4 Mean Platelet Volume 10.8 fL 8.0-12.4 Absolute Neutrophils BLD 3.41 1.56-6.13 Absolute Lymphocytes 2.92 1.18-3.74 Absolute Monocytes BLD Auto 0.63 0.24-0.82 Absolute Eos Blood 0.14 0.04-0.54 Absolute Basophils 0.05 0.01-0.08 Neutrophil % 47.7 % 34.0-70.0 Lymph% 40.8 % 20.0-52.0 Monocytes % 8.8 % 5.0-12.0 Eos % 2.0 % 0.7-7.0 Basophil% 0.7 % 0-1.2 Complete Blood Count 08/07/2017 WBC 8.1 x10^3/UL 3.6-9.6 RBC 4.17 x10^6/UL 3.90-5.70 HGB 12.9 g/dL 12.1-17.2 HCT 39 % 36-50 MCV 93.0 fL 82.2-97.4 MCH 30.9 pg 27.6-33.3 MCHC 33.3 g/dL 33.0-35.5 RDW 14.2 % High 11.6-13.7 PLT 258 x10^3/UL 150-400 MPV 8.4 fL 7.4-10.4 Gran # 5.0 x10^3/UL 1.5-7.2 Lymph# 2.7 x10^3/UL 0.7-4.9 [place]# 0.4 x10^3/UL 0.1-0.9 Gran % 60.4 % 42.2-75.2 Lymph % 34.4 % 20.5-51.1 [place]% 5.2 % 1.7-9.3 Laboratory test finding 08/07/2017 Cortisol - Am 5.8 g/dL Low 6.2-19.4 2 Acth, Plasma 5.8 pg/mL Low 7.2-63.3 2, 3 Comprehensive Metabolic Prof 08/07/2017 Sodium 139 mEq/L 134-149 Potassium 4.8 mEq/L 3.6-5.5 Chloride 101 mEq/L 94-112 Carbon Dioxide 31 mEq/L 21-32 Glucose 127 mg/dL High 70-105 4 BUN 21 mg/dL 6-26 Creatinine 0.9 mg/dL 0.6-1.4 BUN/Creat Ratio 23.3 CALC 8.0-36.0 Calcium 10.3 mg/dL High 8.6-10.2 5 Total Protein 7.0 g/dL 6.4-8.3 Albumin 4.8 g/dL 3.8-5.5 Globulin 2.2 g/dL 2.0-4.8 A/G Ratio 2.2 CALC 0.6-2.3 Alk. Phosphatase 71 U/L 30-110 Alt (SGPT) 41 U/L High 7-35 6 Ast (Sgot) 25 U/L 5-34 Total Bilirubin 0.5 mg/dL 0.2-1.3 GFR Non- >60 ml/min/1.73m^ >=60 GFR >60 ml/min/1.73m^ >=60 Laboratory test finding 08/07/2017 Hemoglobin A1c ([facility]) 5.7 % 4.1-5.7 Laboratory test finding 08/07/2017 LDL, Direct 150 mg/dL High 0-130 Laboratory test finding 10/23/2003 Amylase 25 U/L 25 - 115 Liver Function ([facility]) 10/23/2003 Total Protein 7.1 g/dL 6.3-8.1 Albumin ([facility]/CMCC/Centrex) 4.6 3.8-5.5 A/G Ratio ([facility]/CMC/Centrex) 1.9 0.6-2.2 Globulin 2.4 2.0-4.8 Alkaline Phosphatase (F/C/CTX) 69 U/L 30-110 Alt (SGPT) 14 10-40 Ast (Sgot) ([facility]/CMC/Centrex) 13 U/mL 5-34 Bilirubin, Total 0.6 mg/dL 0.2-1.3 Bilirubin, Direct 0.1 mg/dL 0-0.6 Bilirubin, Indirect 0.48 ml/dl 0.10-1.0 LH +FSH-SL 07/28/2003 FSH 6.1 mIU/ml 7 LH 9.6 mIU/ml 8 Laboratory test finding 06/27/2003 Misc C&S NO GROWTH DAY 2 Final Ua - Micro ([facility]) 06/23/2003 Appearance CLEAR Color DK YELLOW Glucose NEG Bilirubin NEG Ketones NEG SP Grav >=1.030 Blood 2+ PH 5.0 Protein NEG Urobil 0.2 Nitrite NEG Leukocytes NEG Hyaline - /Lpf Granular - /Lpf WBC'S 3-5 RBC'S 20-50 Mucus - /Lpf Epith 3-5 Bacteria - Amorphous - /Lpf Crystals - /Lpf Laboratory test finding 05/03/2003 Comments C&S R BREAST WND CBC Electronic ([facility]) 02/15/2003 WBC 9.0 3.6-9.6 Lymphocytes 31.9 % 20.5 - 51.1 Monocytes 6.7 % 1.7-9.3 Granulocytes 61.4 % 42.2 - 75.2 Lymphocytes 2.9 10^3/uL 0.7 - 4.9 Monocytes 0.6 10^3/uL 0.1 - 0.9 Granulocytes 5.5 10^3/uL 1.5 - 7.2 RBC 4.27 3.90-5.70 Hemoglobin ([facility]/CMC/CTX) 13.8 g/dL 12.1 - 17.2 Hematocrit ([facility]/CMC/CTX) 40.2 % 36.1 - 50.3 Mean Corpuscular Vol 94.1 82.2-97.4 Mean Corpuscular Hemaglobin 32.2 27.6-33.3 Mean Corpuscular Hemo Concen 34.2 33.0-34.8 RDW 12.3 11.6-13.7 Platelets 266. 10^3/ul 150-400 Mean Platelet Volume 8.8 7.4-10.4 Comp Metabolic ([facility]) 02/15/2003 Glucose, Serum ([facility]/CMC/CTX) 95 mg/dL 70- 118 BUN (a/CMC/[facility]rex) 13 mg/dL 7-26 Creatinine (a/CMC/CTX) 0.9 mg/dL 0.6-1.4 BUN/Creatinin Ratio 14.1 8.0-36 Sodium 141 134-149 Potassium 4.3 3.6-5.5 Chloride 102 mEq/L 94-112 Co2 28 21-32 Calcium (a/CMC/Centrex) 9.6 mg/dL 8.6-10.0 Total Protein 6.9 g/dL 6.3-8.1 Albumin ([facility]rex) 4.3 3.8-5.5 Globulin 2.6 2.0-4.8 A/G Ratio (a/[facility]) 1.6 0.6-2.2 Alkaline Phosphatase (F/C/CTX) 75 U/L 30-110 Alt (SGPT) 15 10-40 Ast (Sgot) ([facility]) 16 U/mL 5-34 Bilirubin, Total 0.6 mg/dL 0.2-1.3 Lipid Profile ([facility]) 02/15/2003 Cholesterol 225 mg/dL High 120-200 Triglyceride 107 mg/dL 30-200 HDL-Chol 48 30-85 LDL-Calculated ([facility]) 156 CALC High 0-129 VLDL 21 0-50 HDL Risk Factor ([facility]) 4.7 CALC 4.2-7.0 Laboratory test finding 02/15/2003 Bilirubin, Direct 0.0 mg/dL 0-0.6 Bilirubin, Indirect 0.55 ml/dl 0.10-1.0 Magnesium 1.8 1.2-2.1 Free T4/TSH ([facility]) 02/15/2003 TSH 1.10 uIU/ml 0.5-6.0 Free T4 1.36 ng/dL 0.75-1.54 Comp+Liver ([facility]) 10/28/2002 Glucose, Serum (a/[facility]/CTX) 113 mg/dL 70- 118 BUN (a/[facility]) 15 mg/dL 7-26 Creatinine (a/[facility]/CTX) 0.8 mg/dL 0.6-1.4 BUN/Creatinin Ratio 20.4 8.0-36 Sodium 139 134-149 Potassium 4.3 3.6-5.5 Chloride 93, RECHECKED mEq/L Low 94-112 Co2 26 21-32 Calcium (a/[facility]) 9.1 mg/dL 8.6-10.0 Total Protein 7.4 g/dL 6.3-8.1 Albumin ([facility]) 4.9 3.8-5.5 Globulin 2.5 2.0-4.8 A/G Ratio (a/[facility]) 2.0 0.6-2.2 Alkaline Phosphatase 72 U/L 30-110 Alt (SGPT) 14 10-40 Ast (Sgot) ([facility]) 13 U/mL 5-34 Bilirubin, Total 0.6 mg/dL 0.2-1.3 Bilirubin, Direct 0.1 mg/dL 0-0.6 Bilirubin, Indirect 0.53 ml/dl 0.10-1.0 Laboratory test finding 10/28/2002 Amylase 31 U/L 25 - 115 CBC Electronic ([facility]) 10/28/2002 WBC 9.0 3.6-9.6 Lymphocytes 25.9 % 20.5 - 51.1 Monocytes 4.6 % 1.7-9.3 Granulocytes 69.5 % 42.2 - 75.2 Lymphocytes 2.3 10^3/uL 0.7 - 4.9 Monocytes 0.4 10^3/uL 0.1 - 0.9 Granulocytes 6.3 10^3/uL 1.5 - 7.2 RBC 4.59 3.90-5.70 Hemoglobin (a/[facility]/CTX) 13.9 g/dL 12.1 - 17.2 Hematocrit (a/[facility]/CTX) 42.6 % 36.1 - 50.3 Mean Corpuscular Vol 92.8 82.2-97.4 Mean Corpuscular Hemaglobin 30.3 27.6-33.3 Mean Corpuscular Hemo Concen 32.7 Low 33.0-34.8 RDW 12.8 11.6-13.7 Platelets 292 10^3/ul 150-400 Mean Platelet Volume 8.3 7.4-10.4 Laboratory test finding 10/25/2002 Lipase 85 U/L 23.0 - 300.0 Ua - Micro ([facility]) 10/11/2002 Appearance HAZY LT YELLOW Glucose NEGATIVE Bilirubin NEGATIVE Ketones NEGATIVE SP Grav 1.010 Blood NEGATIVE PH 5.0 Protein NEGATIVE Urobil 0.2 Nitrite NEGATIVE Leukocytes 1+ Hyaline - /Lpf Granular - /Lpf WBC'S 4-6 RBC'S 1-3 Mucus - /Lpf Epith MOD Bacteria 1+ Amorphous - /Lpf Crystals - /Lpf Comments SEE DETAILS 9 1 RESULTS VERIFIED BY REPEAT ANALYSIS 2 1 serum pour off from red top tube 3 ACTH reference interval for samples collected between 7 and 10 AM. 4 RESULTS VERIFIED BY REPEAT ANALYSIS 5 RESULTS VERIFIED BY REPEAT ANALYSIS 6 RESULTS VERIFIED BY REPEAT ANALYSIS 7 Follicular Phase: 4.0-13.0 mIU/mL Ovulatory Peak: 5.0-22.0 mIU/mL Luteal Phase: 2.0-13.0 mIU/mL Post-Menopausal: 20.0-138.0mIU/mL MALE: 1.0-8.0 mIU/mL . 8 Follicular Phase: 1.0-18.0 mIU/ml Ovulatory Peak: 24.0-105.0mIU/ml Luteal Phase: 0.4-20.0 mIU/ml Post-Menopausal: 15.0-62.0 mIU/ml MALES: 2.0-12.0 mIU/ml . 9 FEW YEAST-LIKE ORGANISMS Procedures Date CPT Code Description Status Comment 02/03/2018 97694 Electrocardiogram Complete Completed 09/05/2003 89731 Injection Subcutaneous Or Completed COMPAZINE 10MG/2ML L Intramuscular GLUT IM CJ 12/05/2002 70251 Injection Subcutaneous Or Completed COMPAZINE 10MG IM L Intramuscular [id number] 12/05/2002 33028 Injection Subcutaneous Or Completed DEMERAL 100MG IM L Intramuscular [id number] Encounters Type Date Location Provider CPT E/M Dx Office Visit 02/03/2018 11:30a [facility] Dickson Del Rio M.D. 44029 I10 E24.9 Office Visit 12/10/2017 4:20p [place] [address] F43.23 Office Visit 09/24/2017 9:50a [place] [address] M51.06 G89.29 Office Visit 08/07/2017 9:00a [place] [address] E11.8 D35.00 I10 E78.00 G89.29 E78.1 Office Visit 01/23/2009 1:15p Main Office Lucy Farr, [facility] [address] 401.9 722.73 Plan of Care Future Appointment(s):03/08/2018 2:40 pm - David Zhong MD at [facility] Ebucor9502/09/2018 4:30 pm - David Zhong MD at Main [facility]72 - David Zhong MDI10 Essential (primary) hypertensionComments: take just 75mg of the Ibesartan and we'll see how the BP monitor goes.R51 EeewulxzN86.9 Jaylon's syndrome, ihdbmmcenzlO37.3 Other amnesiaAllNew Medication:Irbesartan 75 mgComments:~B_~U_Medication Management~b_~u_ Patient Understands medications she's taking? Yes No Are there Barriers to Adherence? Yes No Has the patient been asked about herbal supplements and therapies, and OTC meds? Yes No
--- NOTE | 2018-02-16 15:10 | RAD ---
HISTORY: headache COMPARISONS: December 21, 2017 TECHNIQUE: Multiple contiguous axial CT scans were obtained of the head without intravenous contrast. FINDINGS: HEMORRHAGE/INFARCT: There is no hemorrhage or acute infarct. MASSES/SHIFT: There is no mass or shift. EXTRA-AXIAL SPACES: There are no extra-axial fluid collections. SULCI AND VENTRICLES: The sulci and ventricles are normal in size and position for the patient's stated age. CEREBRUM: There are no focal parenchymal abnormalities. BRAINSTEM: There are no focal parenchymal abnormalities. CEREBELLUM: There are no focal parenchymal abnormalities. VESSELS: The vessels are grossly normal. PARANASAL SINUSES: The paranasal sinuses are clear. ORBITS: The orbits are unremarkable. BONES AND SOFT TISSUE: No bone or soft tissue abnormalities are noted. OTHER: None IMPRESSION: NO ACUTE INTRACRANIAL PATHOLOGY.
[2018-02-16 15:14] LABS: ABS Basophils 0 10^3/ul (0-0.2); ABS Eosinophils 0.1 10^3/ul (0-0.6); ABS Lymphocytes 2.8 10^3/ul (1.0-4.8); ABS Monocytes 0.5 10^3/ul (0-0.8); ABS Neutrophils 2.6 10^3/ul (1.5-7.7); ABS Nucleated RBC 0 10^3/ul; Eosinophil % 2.3 % (0-6); Hematocrit 42 % (35-47); Hemoglobin 14.3 g/dl (12.0-16.0); Lymphocyte % 45.8 % (25-47); Mean Corpuscular HGB Conc 34 g/dl (31-36); Mean Corpuscular Hemoglobin 32 pg (27-31); Mean Corpuscular Volume 93 fL (80-97); Nucleated Red Blood Cells % 0.1; Platelet Count 201 10^3/ul (150-450); Red Blood Count 4.49 10^6/ul (4.00-5.40); Red Cell Distribution Width 14 % (10.5-15); White Blood Count 6.1 10^3/ul (3.5-10.8)
[2018-02-16 15:25] LABS: EGFR Non-African American 59.9 (>60)
[2018-02-16] MEDS ORDERED: NS 0.9% 1000 ML* 1,000 ML IV ONE (15:59)
[2018-02-16] MEDS ORDERED: PROCHLORPERAZINE INJ 5 MG/ML 2 ML VIAL IV PRN (15:59)
[2018-02-16] MEDS ORDERED: diPHENhydraMINE IV* 50 MG/ML 1 ml VIAL (BENADRYL) IV ONE (16:00)
[2018-02-16 16:04] LABS: Urine Appearance Cloudy; Urine Blood Negative (Negative); Urine Color Yellow; Urine Ketones Negative (Negative); Urine Protein Negative (Negative); Urine Specific Gravity 1.017 (1.010-1.030); Urine Urobilinogen Negative (Negative)
[2018-02-16] MEDS ORDERED: HYDROmorphone INJ* 2 MG/ML CARPUJECT SYRINGE IV SLOW PU ONE (16:57)
[2018-02-16 17:26] VITALS: BP 142/54
== END 2018-02-16 17:38 | disposition home or self-care (01) ==
LOC: ED 13:33
DX: R51 Headache (principal); F32.9 Major depressive disorder, single episode, unspecified; Z87.891 Personal history of nicotine dependence
CPT/HCPCS: 36415; 70450; 80053; 81003; 83735; 84443; 85025; 96360; 99282; J1170; J1200